=== PATIENT | female | born 1955 | race Caucasian/White ===

== ENCOUNTER 2017-12-09 13:53 | Emergency (ER) | payer BC, SELFPAY ==
[2017-12-09 13:54] VITALS: BP 157/67; PULSE 55; RESP 16; TEMP 36.1; O2SAT 97; BMI 36.4
--- NOTE | 2017-12-09 14:24 | RAD_ITS ---
STUDY: X-RAY - RIGHT TIBIA AND FIBULA REASON FOR EXAM: Female, 62 years old. Right leg swelling and pain. TECHNIQUE: 2 view(s) of the tibia and fibula were obtained. COMPARISON: None. FINDINGS: Normal visualized tibia. Normal visualized fibula. There is deformity of the medial malleolus which could be due to old injury. There is soft tissue swelling of the calf. RAD/Tibia & Fibula 2 Views IMPRESSION: Soft tissue swelling. Deformity of the medial malleolus probably due to old injury. Otherwise no demonstrated acute osseous changes. Electronically Signed: Shady Moore MD at 15:54 EDT Tel , Service support ,
--- NOTE | 2017-12-09 15:16 | ED.VISSUMM ---
- ER Visit Summary Date of Service: 12/09/17 Chief Complaint: Right calf pain History of Present Illness: The patient is a [address] Mcintosh. She reports that she has right calf pain that began approximate 1 month ago. She describes it as a aching pain that is 1 out of 10 at rest and sharp and cramping that is 10 out of 10 with walking or going up steps. She relieved by rest. She is taken Aleve as well. She denies any recent injury. No fall, MVA, or change in activity. She denies any paresthesias. However, she reports pain is been gradually increasing. States that she saw her primary care physician and had blood work obtained for this. This was unremarkable. She has not had an ultrasound or an x-ray. Review of systems: General: No fever, chills, cold sweats. Cardiovascular: No chest pain, palpitations. Respiratory: No cough, shortness of breath, dyspnea on exertion. Gastrointestinal: No abdominal pain, nausea, vomiting, diarrhea, melena, or hematochezia. Genitourinary: No dysuria, frequency, hematuria. Skin: No rash. Neuro: No headache, numbness, weakness. Physical Examination: Vitals: Stable. Afebrile. General: Well-nourished and well-developed. Head: Normocephalic atraumatic. Neck: Supple, no lymphadenopathy. No JVD. Nontender. Cardiovascular: Regular rate and rhythm. No murmurs. Respiratory: No respiratory distress. Clear to auscultation bilaterally. Abdominal: Soft, nontender, nondistended, normal bowel sounds. No guarding, rebound, or peritoneal signs. Back: Nontender. Extremities: Mild tenderness palpation over the right calf. Moderate tenderness palpation in the right popliteal fossa. 2+ dorsalis pedis pulse bilaterally. Normal sensation light touch throughout, no edema. Skin: Normal color, no rash. Neurologic: Alert and oriented ?3. Cranial nerves II through XII are intact. Normal strength and sensation. Psych: Normal affect. Test Results: X-ray is negative. Emergency Department Course and Treatment: Patient refused pain medications while here. Treatment Plan: Patient will be discharged with an order for an outpatient Doppler to be obtained tomorrow. She will be sent to the emergency department if this is positive. If this is negative the patient is instructed to follow-up with her primary care physician for further evaluation and possible referral to physical therapy. She will be given a prescription for 12 [place]. Return to the emergency department for any worsening symptoms. Disposition: To home in improved and stable condition. Impression: 1. Right calf pain, uncertain cause. This note was generated with [employer] dictation software. It may contain incorrect words, spelling, and punctuation that were not noted in review of the chart prior to signing ED Disposition - Plan for ED Patient: Disposition: Home or Assisted Living Chief Complaint: Lower Extremity Injury Instructions: ED Leg Swelling Unilateral Prescriptions: Hydrocodone Bitart/Apap 5-325 [[place] 5MG-325MG] 1 tablet PO Q4H PRN PRN 2 Days #10 tablet PRN Reason: Pain Referrals: Rainer Mcintosh MD [Primary Care Provider] - 1 Week
--- NOTE | 2017-12-09 15:27 | ED.DCSUM_ITS ---
- ER Visit Summary Date of Service: 12/09/17 Chief Complaint: Right calf pain History of Present Illness: The patient is a [address] Mcintosh. She reports that she has right calf pain that began approximate 1 month ago. She describes it as a aching pain that is 1 out of 10 at rest and sharp and cramping that is 10 out of 10 with walking or going up steps. She relieved by rest. She is taken Aleve as well. She denies any recent injury. No fall, MVA, or change in activity. She denies any paresthesias. However, she reports pain is been gradually increasing. States that she saw her primary care physician and had blood work obtained for this. This was unremarkable. She has not had an ultr asound or an x-ray. Review of systems: General: No fever, chills, cold sweats. Cardiovascular: No chest pain, palpitations. Respiratory: No cough, shortness of breath, dyspnea on exertion. Gastrointestinal: No abdominal pain, nausea, vomiting, diarrhea, melena, or hematochezia. Genitourinary: No dysuria, frequency, hematuria. Skin: No rash. Neuro: No headache, numbness, weakness. Physical Examination: Vitals: Stable. Afebrile. General: Well-nourished and well-developed. Head: Normocephalic atraumatic. Neck: Supple, no lymphadenopathy. No JVD. Nontender. Cardiovascular: Regular rate and rhythm. No murmurs. Respiratory: No respiratory distress. Clear to auscultation bilaterally. Abdominal: Soft, nontender, nondistended, normal bowel sounds. No guarding, re bound, or peritoneal signs. Back: Nontender. Extremities: Mild tenderness palpation over the right calf. Moderate tenderness palpation in the right popliteal fossa. 2+ dorsalis pedis pulse bilaterally. Normal sensation light touch throughout, no edema. Skin: Normal color, no rash. Neurologic: Alert and oriented ?3. Cranial nerves II through XII are intact. Normal strength and sensation. Psych: Normal affect. Test Results: X-ray is negative. Emergency Department Course and Treatment: Patient refused pain medications while here. Treatment Plan: Patient will be discharged with an order for an outpatient Doppler to be obtained tomorrow. She will be sent to the emergency department if this is positive. If this is negative the patient is instructed to follow-up with her primary care physician for further evaluation and possible referral to physical therapy. She will be given a prescription for 12 [place]. Return to the emergency department for any worsening symptoms. Disposition: To home in improved and stable condition. Impression: 1. Right calf pain, uncertain cause. This note was generated with [employer] dictation software. It may contain incorrect words, spelling, and punctuation that were not noted in review of the chart prior to signing ED Disposition - Plan for ED Patient: Disposition: Home or Assisted Living Chief Complaint: Lower Extremity Injury Instructions: ED Leg Swelling Unilateral Prescriptions: Hydrocodone Bitart/Apap 5-325 [[place] 5MG-325MG] 1 tablet PO Q4H PRN PRN 2 Days #10 tablet PRN Reason: Pain Referrals: Rainer Mcintosh MD [Primary Care Provider] - 1 Week
[2017-12-09 15:37] VITALS: RESP 18
== END 2017-12-09 15:37 | disposition home or self-care (01) ==
PROVIDERS: Emergency Provider Emergency Medicine; Family Provider Family Medicine; PCP Family Medicine
DX: M79.661 Pain in right lower leg (principal); I10 Essential (primary) hypertension; Z87.891 Personal history of nicotine dependence; Z79.899 Other long term (current) drug therapy
CPT/HCPCS: 73590; 99282

== ENCOUNTER → 2017-12-10 11:12 | Outpatient (CLI) | payer BC, SELFPAY ==
--- NOTE | 2017-12-10 11:26 | VDLE_ITS ---
Reason For Study: Pain RIGHT LEFT GSV is normal. CFV is compressible, spontaneous, phasic, CFV is compressible, spontaneous, phasic, competent, and demonstrates normal competent and demonstrates normal augmentation. augmentation. FV is compressible, spontaneous, phasic, competent and demonstrates normal augmentation. POP V is compressible, spontaneous, phasic, competent and demonstrates normal augmentation. T/P Trunk is compressible. PTV is compressible. RT PerV is compressible. <> Interpretation Summary There is no evidence of right lower extremity deep vein thrombosis. Right greater saphenous vein appears patent and compressible segmentally. Normal flow patterns left common femoral vein Ordering Physician: Fabiano Esqueda Referring Physician: Rainer Mcintosh Performed By: Ary Tom, AILYN, RVT
== END ==
PROVIDERS: Family Provider Family Medicine; PCP Family Medicine; Visit Provider Emergency Medicine
DX: M79.604 Pain in right leg (principal)
CPT/HCPCS: 93971

== ENCOUNTER 2019-08-03 06:35 | Emergency (ER) | payer MEDICARE, SELFPAY ==
[2019-08-03 06:37] VITALS: BP 184/85; PULSE 71; RESP 18; TEMP 36.7; O2SAT 96; BMI 40.3
--- NOTE | 2019-08-03 06:49 | ED.VISSUMM ---
- ER Visit Summary Date of Service: 08/03/19 Chief Complaint: Back pain, leg cramps History of Present Illness: The patient is a 64 F who presents with back pain and leg cramps. Started last night. She states that all day yesterday she was cleaning her house and may have overexerted herself. She did not drink a lot of water. She states she has pain in the right lumbar region. It is worse with movement. Nothing makes it better. Denies numbness or tingling. No sciatic radiation. No dysuria or fevers. She tried Tylenol last night without any relief. She states the leg clamps are on the anterior portion of the right thigh and down into the bilateral calves. She increase her hydration last night and took potassium pills but this did not help. She denies any history of any back pain or back surgeries. Physical Examination: Vital signs reviewed. HEENT exam unremarkable. Heart is regular rate and rhythm without murmurs. Lungs are clear to auscultation. Abdomen is soft and nontender. Her back is tender in the right lumbar paraspinal region. There is no midline tenderness. Extremities reveal no edema. She has no tenderness of the bilateral thighs or bilateral calves. Skin exam normal. Neurologic exam normal. Test Results: [] Emergency Department Course and Treatment: Patient will receive morphine and Zofran. Treatment Plan: [] Disposition: [] Impression: [] This note was generated with [employer] system software. It may contain incorrect words, spelling, and punctuation that were not noted in review of the chart prior to signing <Erwin Do - Last Filed: 08/03/19 06:49> - ER Visit Summary Patient was checked out to me to check x-ray and lab results. Basic metabolic panel is unremarkable. Lumbar spine x-ray shows Degenerative changes of the spine. On reevaluation, patient continues to have pain. She is given a dose of Dilaudid. She had some improvement. She was then given Valium with improvement of her pain. She is given prescriptions for [place] and Valium and advised to follow-up with her primary care physician. Advised return to ED for worsening complaints. Disposition: Discharge home Impression: Lumbar strain This note was generated with [employer] software. It may contain incorrect words, spelling, and punctuation that were not noted in review of the chart prior to signing <Irais Garcia - Last Filed: 08/03/19 09:23> ED Disposition <Erwin Do - Last Filed: 08/03/19 06:49> <Irais Garcia - Last Filed: 08/03/19 09:23> - Plan for ED Patient: Instructions: ED LUMBAR SPRAIN/STRAIN Prescriptions: Hydrocodone Bitart/Apap 5-325 [[place] 5MG-325MG] 1 tab PO Q6H PRN PRN 3 Days #10 tab PRN Reason: Pain Prescription Printed Diazepam [Valium] 2 mg PO TID PRN PRN #10 tab PRN Reason: Muscle Spasm Prescription Printed Referrals: Rainer Mcintosh MD [Primary Care Provider] -
[2019-08-03] MEDS: Ondansetron 4 MG/2 ML Vial IV (06:51)
[2019-08-03] MEDS: Morphine 4 MG/ML Syringe IV (06:52)
--- NOTE | 2019-08-03 07:04 | RAD_ITS ---
STUDY: X-RAY - LUMBAR SPINE REASON FOR EXAM: Female, 64 years old. NEW ONSET OF BACK PAIN AFTER DOING HOUSEWORK YESTERDAY. PAIN IN POSTERIOR RIGHT HIP AND LOW BACK TECHNIQUE: 3 view(s) of the lumbar spine were obtained. COMPARISON: None FINDINGS: Normal lumbar lordosis. There is 15 degree dextroscoliosis of the lumbar spine. There is a normal alignment of the vertebrae. There is multilevel endplate spondylosis of the lumbar vertebrae. There is multi-level degenerative disc disease with multi-level disc space narrowing. There is atherosclerotic calcification of the abdominal aorta without a demonstrated aneurysm. RAD/Lumbar Spine 2 or 3 Views IMPRESSION: Degenerative changes of the spine, as detailed above. Electronically Signed: Thais Champion, at 8:20 EDT Tel , Service support ,
[2019-08-03 07:09] LABS: Anion Gap 7 (5-15); BUN 14 mg/dL (7-18); BUN/Creat Ratio 19.9 RATIO (10-20); Calcium,Total 7.9 mg/dL (8.5-10.1); Chloride 105 mmol/L (98-107); EST Glomerular Filtration Rate 89 mL/min (>60); Est Glom Filt Rate - Afr Amer 107 mL/min (>60); Estimated Creatinine Clearance 57.83 ml/min; Glucose 117 mg/dL (74-106); Potassium 3.5 mmol/L (3.5-5.1); Sodium Level 136 mmol/L (136-145)
[2019-08-03] MEDS: HYDROmorphone 0.5 MG/0.5 ML SYRINGE IV (07:59)
[2019-08-03] MEDS: diazePAM 5 MG Tablet PO (08:35)
[2019-08-03 09:16] VITALS: BP 143/69; PULSE 67; RESP 16; O2SAT 97
--- NOTE | 2019-08-03 09:16 | DCINST.ED_ITS ---
ED Disposition - Plan for ED Patient: Instructions: ED LUMBAR SPRAIN/STRAIN Prescriptions: Hydrocodone Bitart/Apap 5-325 [[place] 5MG-325MG] 1 tablet PO Q6H PRN PRN 3 Days #10 tablet PRN Reason: Pain Diazepam [Valium] 2 mg PO TID PRN PRN #10 tablet PRN Reason: Muscle Spasm Referrals: Rainer Mcintosh MD [Primary Care Provider] -
== END 2019-08-03 09:45 | disposition home or self-care (01) ==
LOC: ED 07:32
PROVIDERS: Emergency Provider Emergency Medicine; PCP Family Medicine
DX: S39.012A Strain of muscle, fascia and tendon of lower back, initial encounter (principal); X50.0XXA Overexertion from strenuous movement or load, initial encounter; Y93.89 Activity, other specified; Y92.009 Unspecified place in unspecified non-institutional (private) residence as the place of occurrence of the external cause; Y99.8 Other external cause status
CPT/HCPCS: 72100; 80048; 96374; 96375; 99285; J2405

== ENCOUNTER 2019-08-05 06:40 | Emergency (ER) | payer MEDICARE, SELFPAY ==
[2019-08-05 06:42] VITALS: BP 200/89; PULSE 70; RESP 18; TEMP 36.1; O2SAT 97; BMI 40.7
--- NOTE | 2019-08-05 07:35 | RAD_ITS ---
STUDY: X-RAY - RIGHT KNEE REASON FOR EXAM: Female, 64 years old. Right leg pain that started Monday was seen Monday. Today it hurts to bad to move or bear weight. No known injury. Right knee replacement done In April 2017. TECHNIQUE: 4 view(s) of the knee. COMPARISON: None. FINDINGS: Normal visualized distal femur. Normal visualized proximal tibia and fibula. Normal proximal tibiofibular articulation. The patient is status post right total knee replacement. There is good alignment. Minimal joint effusion. RAD/Knee 4 or More Views IMPRESSION: Status post total knee replacement. Minimal joint effusion. Electronically Signed: Luis Angel Fuentes, at 8:57 EDT , Service support ,
[2019-08-05] MEDS: Morphine 4 MG/ML Syringe IM (08:02)
--- NOTE | 2019-08-05 08:17 | RAD_ITS ---
STUDY: X-RAY - PELVIS AND RIGHT HIP REASON FOR EXAM: Female, 64 years old. Right leg pain that started Monday was seen Monday. Today it hurts to bad to move or bear weight. No known injury. Right knee replacement done In April 2017. TECHNIQUE: 3 views of the pelvis and hip. COMPARISON: None. FINDINGS: There is a non-specific bowel gas pattern. Normal visualized soft tissue structures. There is narrowing with cortical sclerosis and osteophyte formation of the sacroiliac joint consistent with degenerative osteoarthritic changes. Normal bilateral superior and inferior pubic rami. Normal pubic symphysis. Normal bilateral ischial tuberosities. Normal visualized femoral head. Normal acetabulum. There is mild articular joint space narrowing of the hip. The patient is status post left hip replacement. RAD/HIP, UNI W/ Pelvis 2-3 Views IMPRESSION: Mild degree of degenerative changes of the right hip joint. Degenerative changes of both sacroiliac joints likely worse on the right side. The patient is status post left total hip replacement. Electronically Signed: Luis Angel Fuentes, at 8:53 EDT , Service support ,
[2019-08-05] MEDS: diazePAM 5 MG Tablet PO (09:52)
[2019-08-05] MEDS: HYDROmorphone 1 MG/ML Syringe IM (09:54)
[2019-08-05 11:30] VITALS: PULSE 75; RESP 18; O2SAT 96
--- NOTE | 2019-08-05 12:09 | NURSING ---
DR ANG LOAIZA
--- NOTE | 2019-08-05 12:12 | ED.VISSUMM ---
- ER Visit Summary Date of Service: 08/05/19 Chief Complaint: Right leg pain History of Present Illness: The patient is a 64 F who presents with right lower extremity pain that is been getting worse over the past 3 days. Patient also complains of pain in her right lower lumbar area. Patient states the pain is constant. Patient describes the pain is sharp, aching, and burning. Patient states the pain radiates into her right hip and right knee. Patient states pain is worse with any weightbearing. Patient states she has to drag her leg behind her when she tries to ambulate. Patient denies any trauma or injury. Patient denies any paresthesias or weakness. Physical Examination: Vital signs are stable except for an elevated blood pressure of 200/89. Patient is afebrile. Patient is in no acute distress. Musculoskeletal exam reveals tenderness over the right lumbar paraspinal muscles and sacroiliac area. There is also some mild tenderness over the anterior aspect of the right hip. There is no edema or ecchymosis. There is no bony crepitance or step-off. Range of motion was limited in all motions of the right knee, right hip, and lumbar spine secondary to pain. Strength is 5/5 bilaterally in the lower extremities. There are no sensory deficits noted. Test Results: X-rays of the right hip and right knee were obtained. There is no acute fracture. The prosthetic parts are in place in the right knee. There does not appear to be any loosening. These were interpreted by the radiologist and reviewed by myself. Emergency Department Course and Treatment: Patient was given injection of morphine and a dose of oral Valium initially. Patient states her pain was unchanged. Patient was given an injection of Dilaudid. Patient also took 1 of her home [place] tablets. I attempted to ambulate the patient but she was unable to ambulate due to the pain. Case was discussed with the hospitalist. He will admit the patient for intractable pain. Patient understood and was agreeable with the plan. All questions were answered. Patient changed her mind and wants to go home. Patient states she will be able to follow-up with her primary care physician tomorrow. Patient states she will be able to get around at home safely. Patient is refusing to be admitted. Disposition: Discharge home Impression: Intractable low back and right lower extremity pain This note was generated with [employer] dictation software. It may contain incorrect words, spelling, and punctuation that were not noted in review of the chart prior to signing ED Disposition - Plan for ED Patient: Disposition: Acute Care Hospital [facility] Diagnosis: Intractable low back pain Instructions: ED Back Pain Acute or Chronic Referrals: Rainer Mcintosh MD [Primary Care Provider] - Keep Mihir appointment
--- NOTE | 2019-08-05 12:24 | PCM.HP.STD ---
Problem List (1) Intractable low back pain Status: Acute History of Present Illness The patient is a 64 year old F [] Past Medical History Allergies adhesive Adverse Reaction (Verified 08/05/19 06:46) Rash Home Medications: Ambulatory Orders Medication Instructions Recorded Lisinopril/Hydrochlorothiazide 1 tablet PO DAILY 11/14/12 [Zestoretic 20/ Tablet] Bupropion HCl [Bupropion HCl ER] 150 mg PO BID 08/03/19 Diazepam [Valium] 2 mg PO TID PRN PRN #10 tab 08/03/19 Hydrocodone Bitart/Apap 5-325 1 tab PO Q6H PRN PRN 3 Days #10 tab 08/03/19 [[place] 5MG-325MG] Metoprolol Tartrate 25 mg PO BID 08/03/19 Oxycodone [Oxyir] 5 - 10 mg PO Q4H PRN PRN 08/03/19 Smoking Status: Current every day smoker Patient Problems: Active and Suspected Problems Intractable low back pain (Acute) - Physical Exam Vitals/I&O's: Vital Signs Temp Pulse Resp BP Pulse Ox 96.9 F L 75 18 200/89 H 96 08/05/19 06:42 08/05/19 11:30 08/05/19 11:30 08/05/19 06:42 08/05/19 11:30 Oxygen Delivery Method Room Air Weight: 121.5 kg Body Mass Index (BMI) 40.7 Assessment/Plan All Active Problems Intractable low back pain (Acute)
== END 2019-08-05 13:27 | disposition short-term general hospital (02) ==
PROVIDERS: Emergency Provider Emergency Medicine; PCP Family Medicine
DX: M54.5 Low back pain (principal); M79.604 Pain in right leg; E66.9 Obesity, unspecified; I10 Essential (primary) hypertension; Z79.899 Other long term (current) drug therapy; Z72.0 Tobacco use
CPT/HCPCS: 73502; 73564; 96372; 99284

== ENCOUNTER 2020-04-14 08:51 | Outpatient (RCR) | payer MEDICARE, SELFPAY ==
[2020-04-14] MEDS: COVID-19 VACC, MRNA(PFIZER)/PF 30 MCG/0.3 ML SYRINGE IM (10:58)
[2020-05-05] MEDS: COVID-19 VACC, MRNA(PFIZER)/PF 30 MCG/0.3 ML SYRINGE IM (10:48)
== END 2020-07-14 23:59 ==
LOC: IMMUN 08:51
PROVIDERS: PCP Family Medicine; Visit Provider Family Medicine
DX: Z23 Encounter for immunization (principal)
CPT/HCPCS: 0001A; 0002A; 91300